=== PATIENT | male | born 1950 | race Caucasian/White ===

== ENCOUNTER → 2025-01-14 09:45 | Outpatient (REF) | payer OTHER, SELFPAY | LOC: RCS 09:45 | PROVIDERS: ATTENDING PHYSICIAN Internal Medicine Cardiovascular Disease; FAMILY PHYSICIAN Family Medicine | DX: R00.2 Palpitations (principal); I49.3 Ventricular premature depolarization; R06.02 Shortness of breath | CPT/HCPCS: 93306 ==